=== PATIENT | female | born 1980 ===

== ENCOUNTER 2019-06-12 11:21 | Outpatient (CLI) | payer SELFPAY ==
--- NOTE | 2019-06-12 11:26 | ECG_ITS ---
Measurements Intervals [place] Rate: 73 P: 56 MS: 141 QRS: 63 QRSD: 91 T: 27 QT: 349 QTc: 386 Interpretive Statements SINUS RHYTHM INCOMPLETE RIGHT BUNDLE BRANCH BLOCK POOR R WAVE PROGRESSION, ANTERIOR LEADS BASELINE ARTIFACT- V5-V6 BORDERLINE ECG Electronically Signed On 06-12-2019 15:39:24 CODING TECH by Augustine Bhatia D.O.
[2019-06-12 11:56] LABS: Hematocrit 43.3 % (37.0-47.0); Hemoglobin 14.4 g/dL (12.0-15.0)
== END 2019-06-12 11:22 | disposition home or self-care (01) ==
LOC: ANHSURGERY 11:26
PROVIDERS: Anesthesiology; Visit Provider Surgery Plastic and Reconstructive Surgery
DX: L57.4 Cutis laxa senilis (principal); I45.10 Unspecified right bundle-branch block
CPT/HCPCS: 36415; 85014; 85018; 93005

== ENCOUNTER 2019-06-21 01:17 | Day surgery (SDC) | payer OTHER, SELFPAY ==
[2019-06-07 14:10] VITALS: BMI 31.9
[2019-06-21] VITALS (17 sets, daily range): BP systolic 95–143; BP diastolic 53–81; PULSE 52–97; RESP 12–18; TEMP 36.4–36.9; O2SAT 92–100; BMI 32.5
[2019-06-21] MEDS: LACTATED RINGERS 1,000 ML 30 ML IV CONT ×2 (07:50→13:39)
--- NOTE | 2019-06-21 08:16 | WPDANESEPPF ---
Anes - Initial Pre Proc Eval Procedure: Operation Date: 06/21/19 09:00 Proposed Procedures p Bilateral Breast Augmentation, Bilateral Mastopexy, - Juan C Savage MD s Abdominoplasty - Juan C Savage MD Date/Time: 06/21/19 08:16 Surgeon: Juan C Savage MD Pre Op Diagnosis: Micromastia, Skin Laxity Patient Data Age: 39 Gender: F Height: 1.73 m Weight: 95.25 kg Allergies Allergy/AdvReac Type Severity Reaction Status Date / Time No Known Allergies Allergy Unverified 06/07/19 14:13 Home Medications Medication Instructions Recorded Confirmed Type docusate sodium 100 mg capsule 100 mg PO DAILY #14 cap 06/04/19 06/07/19 Rx ondansetron HCl 4 mg tablet 4 mg PO Q8H #28 tablet 06/04/19 06/07/19 Rx biotin 1 cap PO DAILY 06/07/19 06/07/19 History carisoprodol 350 mg tablet 350 mg PO TID PRN #21 tablet 06/07/19 06/07/19 Rx cholecalciferol (vitamin D3) 5,000 unit PO DAILY 06/07/19 06/07/19 History [Vitamin D3] cyanocobalamin (vitamin B-12) 1,000 mcg PO DAILY 06/07/19 06/07/19 History [Vitamin B-12] multivitamin 1 tablet PO DAILY 06/07/19 06/07/19 History oxycodone-acetaminophen 5 mg-325 1 tablet PO Q6H PRN #15 tablet 06/07/19 06/07/19 Rx mg tablet Laboratory Tests 06/21/19 07:40 Cotinine Pending Patient hx anesthesia problems: post op nausea/vomiting Family hx anesthesia problems: none PMFSH Social History Social History Smoking status: Former smoker Alcohol intake: current Anes - Eval Final PreProcedure Day of Procedure 06/21/19 08:16 Patient weight: obese Heart: regular rate and rhythm Lungs: clear to auscultation and normal air movement Airway: Mallampati scale class II Neurological: alert and oriented Last oral intake: >/= 8 hours ASA classification: II Emergent: no Anesthetic plan: proceed Anesthesia type and monitoring: general ETT and standard monitoring Informed Consent: The patient's anesthetic plan and its attendant risks and benefits were discussed with the patient/family/POA. Questions were solicited and answers provided to the satisfaction of the patient/family/POA.
--- NOTE | 2019-06-21 08:27 | WPDHPUPDATE1 ---
History and Physical Update Update Date/Time: 06/21/19 08:27 History and Physical has been reviewed, including an updated exam of the patient. There are NO changes in the patient's condition. Risks, benefits, and alternatives have been discussed and questions answered. Patient agrees to proceed with procedure.
[2019-06-21] MEDS: SCOPOLAMINE 1.5 MG PATCH TRANSDERM (08:30)
[2019-06-21] MEDS: FAMOTIDINE 20 MG/2 ML VIAL IV PUSH (08:48)
[2019-06-21] MEDS: ceFAZolin 2 GM/D5W 50 ML 2 GM/50 ML BAG IVPB (08:56)
[2019-06-21] MEDS: LIDO 1%/EPINEPHRINE 1:100,000 20 ML VIAL 60 ML INFILTRATE (09:17)
[2019-06-21 10:49] LABS: Urine Cotinine NEGATIVE
--- NOTE | 2019-06-21 13:35 | PM.PROC ---
Procedure Note - Detailed Date of procedure: 06/21/19 Pre-op diagnosis: Micromastia, Skin Laxity Post-op diagnosis: same Procedure performed: 1. Bilateral augmentation mastopexy 2. Progressive tension abdominoplasty Description of procedure: She is here today for augmentation / mastopexy and abdominoplasty. Previously and again today the risks, benefits, alternatives were discussed in extensive detail. I wanted her to be very realistic about the risks involved as well as expectations. We discussed aftercare and what to monitor for. I was very upfront about the risks of wound breakdown leading to loss of skin, open wounds, and need for additional procedures with permanent abdominal deformity. We discussed DVT/PE risks and management. Made sure answered all of her questions to her satisfaction today and consent was obtained. She was taken to the operating room placed supine on the operating room table. Anesthesia provided by anesthesiology. A Gallegos catheter was started. We cleansed the skin and 1% lidocaine and 0.25% Marcaine with epinephrine was used anesthetize as a field block. She was prepped and draped in a standard sterile fashion. Tegaderm nipple Rahman were placed. A 15 blade used to make an incision along the vertical aspect of the breast. Dissection was continued until the pectoralis major was identified. I incised the pectoralis major along its inferior border and completely released the inferior border leaving the medial border intact. I created a subpectoral pocket in the appropriate dimensions based on our preoperative planning for the implant. I then copiously irrigated with saline solution and verified a strict hemostasis. Next the use a triple antibiotic and Betadine containing solution to irrigate the pocket. I washed my gloves with the triple antibiotic and Betadine solution. We washed the implant immediately upon opening it with this solution and only opened it when we needed it. Tegaderms were placed on the chest wall. The implant was introduced into the pocket. Having verified positioning of the implant this was closed using 2-0 Vicryl. I tailor tacked the breast into place based on my preoperative markings. I placed her in a sitting position and verified symmetry. Marked out the nipple-areolar complex at 42 mm based on my preoperative markings, measurements, intraoperative measurements and markings as well as observations. All of this was in full agreement. She was placed supine. This was a superior pedicle mastopexy and I de-epithelialized the superior pedicle. I removed the gravity dependent portion of the lower breast. I then closed using 2-0 Vicryl followed by 3-0 Monocryl. On the IMF I used a 3-0 strata fix. This was followed by running subcuticular 4-0 Monocryl and tissue glue. I then addressed the abdomen. The patientwas placed in a flexed position to verify the upper and lower markings would reach. I then placed her supine. A thorough abdominal examination was completed. Stab incisions were made and used tumescent solution. A 10 blade was used to make the upper incision. I continued dissection down to the level of fascia. Elevated just what was necessary for repair of the diastasis and discontinuous undermining otherwise. I then again flexed the bed to verify the upper skin flap would reach the lower markings without tension. Once verified I placed her supine once again and a 10 blade used to make the lower incision. I elevated up to level the umbilicus and left the umbilicus intact on a well-vascularized stalk. The intervening tissue was removed. A 2 mm blunt cannula and Exparel which was mixed 20 cc in 100 cc for a total volume of 120 cc I injected deep to the fascia bilaterally as well as along the incision lines. I plicated the diastasis recti using 0 PDO stratafix barbed suture. This was in 2 separate layers using 2 separate sutures as well. I repaired around the umbilicus leaving plenty of room
[2019-06-21] MEDS: carisoprodoL 350 MG TABLET PO (16:22)
[2019-06-21] MEDS: MORPHINE SULFATE 2 MG/ML INJ IV PUSH ×2 (16:26→20:24)
--- NOTE | 2019-06-21 16:46 | SUR.PHASEI ---
1525: Report given to NANETTE Billings on 2nd OB.
--- NOTE | 2019-06-21 18:38 | PC.NURSE ---
This patient, Mariaa Castorena, was admitted to OB 2nd Floor Room 279-00. Patient/family oriented to hospital policies and general routines including ID bracelet, bed and alarms, visiting hours, pain management, procedures, bathroom and other care routines, personal items, smoking policy, room service/diet, and visiting hours. Valuables list has been completed. Information on how to activate the Rapid Response Team has been discussed. Patient/Family are encouraged to report perceived risks to care and to ask questions if they do not understand what they are told or what they should do.
[2019-06-22 03:00] VITALS: BP 97/56; PULSE 58; RESP 16; TEMP 36.7
[2019-06-22] MEDS: MORPHINE SULFATE 2 MG/ML INJ IV PUSH ×2 (03:08→12:18)
--- NOTE | 2019-06-22 06:49 | WPDANESPN ---
Anes - Prog Note Post-Op Date/Time: 06/22/19 06:49 Cardiovascular status: normal Respiratory status: normal Airway patency: baseline Mental status: baseline Post-Op hydration status: normal Vital Signs: Last Vital Signs Temp 36.7 C 06/22/19 03:00 Pulse 58 L 06/22/19 03:00 Resp 16 06/22/19 03:00 BP 97/56 L 06/22/19 03:00 Pulse Ox 96 06/21/19 18:00 I/O: Intake & Output 06/21/19 06/21/19 06/22/19 15:59 23:59 07:59 Intake Total 750 60 500 Output Total 250 600 200 Balance 500 -540 300 06/21/19 07:40 Cotinine Negative Post-procedural complaints: none Patient Feedback: Patient satisfied with anesthetic care.
[2019-06-22] MEDS: DOCUSATE SODIUM 100 MG CAPSULE PO (08:13)
[2019-06-22] MEDS: carisoprodoL 350 MG TABLET PO ×2 (08:13)
[2019-06-22] MEDS: ENOXAPARIN 40 MG/0.4 ML SYRINGE SUB-Q (08:13)
[2019-06-22 08:15] VITALS: PULSE 54; RESP 14; TEMP 36.4; O2SAT 98
--- NOTE | 2019-06-22 08:34 | WPDPN ---
Progress Note: A&P Assessment and Plan (1) Micromastia: Code(s): N64.82 - Hypoplasia of breast Status: Acute Assessment and Plan: Overall doing very well. With standing up she had a little bit of lightheadedness what appears to be orthostatic hypotension. I see no evidence of DVT or other concern. She is ambulating. Pain controlled. Tolerating a diet. We will make sure that she is doing well throughout the morning. Plan for discharge home later today when she is ambulating without difficulty, continues to tolerate diet, and pain is well controlled. I will see her back in clinic next week. Today with her we spent extensive time discussing the care. What to monitor for. She understands to call with any questions or concerns. They understand any shortness of breath, chest pain, or other medical emergency proceed to the emergency room/dial 911. (2) Breast ptosis: Code(s): N64.81 - Ptosis of breast Status: Acute (3) Skin laxity: Code(s): L57.4 - Cutis laxa senilis Status: Acute (4) History of endometrial biopsy: Code(s): Z92.89 - Personal history of other medical treatment Status: Acute Time Spent With Patient Time with patient: 25 - 35 minutes Exam Const: General: no acute distress Eyes: EOM: EOMs intact bilaterally Resp: Effort & Inspection: normal respiratory effort Other: She is breathing comfortably. No shortness of breath. Cardio: Rate: regular rate GI: Other: Abdomen is healing well. There is no signs of infection. No hematoma. No seroma. Good color and capillary refill. Skin: Other: Breast is healing well. There is no signs of infection. No hematoma. No seroma. Good color and capillary refill. Neuro: Cognition (Neuro): normal cognition Speech: normal speech Extrem: Other: No calf or arm tenderness. Negative Homans. No extremity edema. Objective Data Vital Signs Vital Signs: Vital Signs - 24 hr 06/21/19 13:38 06/21/19 13:55 06/21/19 14:10 Temperature 36.6 C Pulse Rate 89 97 Respiratory Rate 16 17 Blood Pressure 143/77 H 138/69 128/81 Pulse Oximetry 96 99 93 06/21/19 14:25 06/21/19 14:40 06/21/19 14:55 Temperature Pulse Rate 73 67 74 Respiratory Rate 18 14 12 Blood Pressure 133/67 123/75 123/75 Pulse Oximetry 92 95 96 06/21/19 15:10 06/21/19 15:25 06/21/19 15:50 Temperature 36.9 C Pulse Rate 72 85 54 L Respiratory Rate 14 17 18 Blood Pressure 117/62 95/63 L 106/61 Pulse Oximetry 93 96 96 06/21/19 16:00 06/21/19 16:15 06/21/19 16:30 Temperature Pulse Rate 66 69 55 L Respiratory Rate 18 16 Blood Pressure 110/61 109/60 106/62 Pulse Oximetry 93 98 95 06/21/19 17:00 06/21/19 18:00 06/21/19 19:00 Temperature 36.8 C Pulse Rate 62 54 L 52 L Respiratory Rate 16 Blood Pressure 108/56 L 97/53 L 99/58 L Pulse Oximetry 95 96 06/21/19 23:00 06/22/19 03:00 Temperature 36.9 C 36.7 C Pulse Rate 61 58 L Respiratory Rate 16 16 Blood Pressure 104/69 97/56 L Pulse Oximetry Intake/Output Intake/Output: Intake & Output 06/19/19 06/20/19 06/21/19 06/22/19 23:59 23:59 23:59 23:59 Intake Total 810 500 Output Total 850 200 Balance -40 300 Meds/Results Medications: Active Medications Generic Name Dose Route Start Last Admin Trade Name Freq PRN Reason Stop Dose Admin Carisoprodol 350 mg 06/21/19 15:34 06/22/19 08:13 Soma PO 350 mg TID PRN Administration muscle pain Docusate Sodium 100 mg 06/22/19 09:00 06/22/19 08:13 Colace Capsule PO 100 mg DAILY HELIO Administration Enoxaparin Sodium 40 mg 06/22/19 09:00 06/22/19 08:13 Lovenox SUB-Q 40 mg DAILY HELIO Administration Morphine Sulfate 2 mg 06/21/19 15:34 06/22/19 03:08 Morphine Sulfate Inj IV PUSH 2 mg Q4H PRN Administration Pain Rated 7-10 Ondansetron HCl 4 mg 06/21/19 15:34 Zofran Inj IV PUSH Q6H PRN Nausea And Vomiting Oxycodone/Acetamin
--- NOTE | 2019-06-22 08:38 | PM.DS ---
DS: Diagnosis Admitting Diagnosis Admitting Diagnosis: Cutis laxa senilis Micromastia Breast ptosis DS: Summary Time Spent with Patient Time attestation: Total time spent providing and/or coordinating discharge services: Exam Const: General: no acute distress Eyes: EOM: EOMs intact bilaterally Resp: Effort & Inspection: normal respiratory effort Other: She is breathing comfortably. No shortness of breath. Cardio: Rate: regular rate GI: Other: Abdomen is healing well. There is no signs of infection. No hematoma. No seroma. Good color and capillary refill. Skin: Other: Breast is healing well. There is no signs of infection. No hematoma. No seroma. Good color and capillary refill. Neuro: Cognition (Neuro): normal cognition Speech: normal speech Extrem: Other: No calf or arm tenderness. Negative Homans. No extremity edema. DS: Data Data Completed and Pending Labs on day of discharge: Labs from last 24 hours 06/21/19 07:40 Cotinine Negative Discharge Plan Discharge Patient Disposition: Home, Self-Care Discharge Instructions: POST OPERATIVE DISCHARGE INSTRUCTIONS FOR: Breast Augmentation JUAN C SAVAGE M.D. [facility] [address] [place] [address] [address] [place] [address] Remove the Scopolamine patch that was placed behind your ear in 72 hours or less after it was placed. Wash your hands after touching. No driving for 24 hours after anesthesia and while you are taking pain medication. Take all prescribed medication as directed Diet as tolerated. Begin gentle shoulder rolls and arm stretches 10 times per hour. No lifting or activity that raises blood pressure for 48 hours. No lifting more than 10 pounds for 6 weeks. Slowly stand up straight over the next 3-5 days as tolerated Regular walking / ambulation. May Shower. Do not take pain medication before showering as the combination of medication and heat may cause you to feel dizzy or pass out. Let soap and water run over your incisions. Do not scrub or directly wash your incision. Replace the surgical bra and wear it 23 hours per day. Abdominal binder gently placed 23 housr per day. No pools or tubs for 2 weeks. Ibuprofen 600mg three times per day for 5 days if tolerated without gastrointestinal upset or other concerns. If you have any questions or concerns, please call the office . If it is after hours you will be directed to the weight control engineer exchange. Shortness of breath, chest pain, or other medical emergency dial 911 / proceed to the Emergency Room. Patient Instructions: Abdominoplasty (DC), Breast Augmentation (DC) Follow-up/Referrals: Juan C Savage MD [Physician] - 1 Week (Monday) Discharge Medications: Continued ondansetron HCl [Zofran] 4 mg tablet 4 mg PO Q8H Qty: 28 RF: 0 docusate sodium [Colace] 100 mg capsule 100 mg PO DAILY Qty: 14 RF: 0 carisoprodol [Soma] 350 mg tablet 350 mg PO TID PRN (Reason: muscle pain) Qty: 21 RF: 0 oxycodone-acetaminophen [Percocet] 5-325 mg tablet 1 tablet PO Q6H PRN (Reason: pain) Qty: 15 RF: 0 multivitamin Tablet 1 tablet PO DAILY RF: 0 cyanocobalamin (vitamin B-12) [Vitamin B-12] 1,000 mcg Tablet 1,000 mcg PO DAILY RF: 0 cholecalciferol (vitamin D3) [Vitamin D3] 125 mcg (5,000 unit) Tablet 5,000 unit PO DAILY RF: 0 biotin 1 cap PO DAILY RF: 0
[2019-06-22] MEDS: ONDANSETRON INJ 4 MG/2 ML VIAL IV PUSH (12:05)
== END 2019-06-22 12:21 | disposition home or self-care (01) ==
LOC: ANHSURGERY 09:14 → ANHOB2 16:13
PROVIDERS: Visit Provider Surgery Plastic and Reconstructive Surgery
PROC: (CPT 19325; principal; 2019-06-21 09:00)
PROC: (CPT 19325; 2019-06-21 09:00)
DX: Z41.1 Encounter for cosmetic surgery (principal); N64.82 Hypoplasia of breast; N64.81 Ptosis of breast; L57.4 Cutis laxa senilis; Z87.891 Personal history of nicotine dependence; E66.9 Obesity, unspecified; Z68.32 Body mass index [BMI] 32.0-32.9, adult
CPT/HCPCS: 19325; 19316; 15830; 15847; 36415; 80307; 99199; A9270; C9290; J0171; J0690; J1100; J1170; J1580; J1650; J2250; J2270; J2405; J2704; J3010; J7120